=== PATIENT | male | born 1955 | race Caucasian/White ===

== ENCOUNTER 2021-08-27 22:57 | Inpatient (IN) | payer BC, SELFPAY ==
[2021-08-27] MEDS ORDERED: Acetaminophen 325 MG TAB PO PRN (23:20)
[2021-08-27] MEDS ORDERED: Ketorolac Tromethamine 30 MG/ML VIAL IVP SCH (23:45)
[2021-08-27] MEDS ORDERED: Vancomycin 1.5 GRAM/300 ML BAG 1.5 GM in Premix Bag 1 BAG IVPB SCH (23:59)
[2021-08-28] MEDS: Ondansetron PF 4 MG/2 ML Vial IVP PRN (00:35)
[2021-08-28 01:58] LABS: Troponin I 0.019 ng/mL (< 0.028)
[2021-08-28] MEDS: HYDROcodone/Acetaminophen 10/325 mg Tablet PO PRN ×3 (03:23→12:48)
[2021-08-28 05:15] LABS: #Lymphocytes 0.7 thou/uL (1.20-3.40); #Monocytes 0.2 thou/uL (0.11-0.59); #Neutrophils 6.3 thou/uL (1.40-6.50); %Basophils 0.3 % (0.0-1.0); %Eosinophils 0.2 % (0.0-10.0); %Lymphocytes 9.7 % (21.0-51.0); %Monocytes 2.3 % (0.0-10.0); %Neutrophils 87.6 % (42.0-75.0); Hemoglobin 14.1 g/dL (14.0-18.0); Mean Corpuscular HGB CONC 33.7 g/dL (32.0-36.0); Mean Corpuscular Hemoglobin 30.5 pg (27.0-31.0); Mean Corpuscular Volume 90.7 fL (78.0-98.0); Platelet Count 581 thou/uL (130-400); White Blood Cell (WBC) Count 7.2 thou/uL (4.8-10.8)
[2021-08-28 05:30] LABS: Anion Gap 13 mmol/L (10-20); BUN (Urea Nitrogen) 11 mg/dL (8.4-25.7); Calc. Creatinine Clearance 90 mL/min (70-130); Calcium 9.3 mg/dL (7.8-10.44); Carbon Dioxide 26 mmol/L (23-31); Chloride 99 mmol/L (98-107); Glucose 107 mg/dL (80-115); Potassium 4.3 mmol/L (3.5-5.1); Sodium 134 mmol/L (136-145)
[2021-08-28 05:35] LABS: Troponin I 0.028 ng/mL (< 0.028)
[2021-08-28] MEDS: Dexamethasone 4 mg/ml Vial SLOW IVP SCH ×3 (08:49→19:57)
[2021-08-28 09:29] LABS: Bacteria/HPF None Seen HPF (None Seen); Bilirubin Negative (Negative); Blood, Urine Negative (Negative); Clarity Clear (Clear); Glucose, Urine (Dipstick) Normal (Negative); Ketone, Urine 40 mg/dL (Negative); Leukocyte Negative Leu/uL (Negative); Nitrite Negative (Negative); Protein, Urine (Dipstick) 10 mg/dL (Neg-Trace); RBC/HPF 0-3 HPF (0-3); Specific Gravity, Urine 1.029 (1.002-1.036); Squamous Epithelial None Seen HPF (0-3); Urobilinogen Normal mg/dL (Less than 2); WBC/HPF 0-3 HPF (0-3)
[2021-08-28 09:31] LABS: Urine Culture Reflex No No
[2021-08-28] MEDS: Vancomycin 1 GM in Premix Bag 1 BAG IVPB SCH ×2 (11:42→23:21)
[2021-08-28] MEDS ORDERED: Magnevist 469MG/ML 20 ML VIAL ONE (12:29)
[2021-08-28] MEDS ORDERED: Ketorolac Tromethamine 30 MG/ML VIAL IVP SCH (15:45)
[2021-08-28] MEDS ORDERED: Morphine 4 MG/ML VIAL SLOW IVP SCH (15:45)
[2021-08-28] MEDS: Morphine 4 MG/ML VIAL SLOW IVP PRN ×2 (19:57→23:28)
[2021-08-28] MEDS: cloNIDine 0.1 MG TAB PO SCH (19:58)
[2021-08-28] MEDS: Ketorolac Tromethamine 30 MG/ML VIAL IVP SCH (23:21)
[2021-08-29] MEDS: Ketorolac Tromethamine 30 MG/ML VIAL IVP SCH ×3 (05:29→17:33)
[2021-08-29] MEDS: Morphine 4 MG/ML VIAL SLOW IVP PRN ×3 (05:30→20:57)
[2021-08-29 06:28] LABS: #Monocytes 0.9 thou/uL (0.11-0.59); #Neutrophils 12.8 thou/uL (1.40-6.50); %Basophils 0.1 % (0.0-1.0); %Eosinophils 0.1 % (0.0-10.0); %Lymphocytes 6.8 % (21.0-51.0); %Monocytes 5.8 % (0.0-10.0); %Neutrophils 87.2 % (42.0-75.0); Hemoglobin 14.7 g/dL (14.0-18.0); Mean Corpuscular HGB CONC 33.6 g/dL (32.0-36.0); Mean Corpuscular Hemoglobin 30.6 pg (27.0-31.0); Mean Corpuscular Volume 91.1 fL (78.0-98.0); Platelet Count 640 thou/uL (130-400); RBC Distribution Width 12.2 % (11.5-14.5); Red Blood Cell (RBC) Count 4.79 mill/uL (4.70-6.10); White Blood Cell (WBC) Count 14.7 thou/uL (4.8-10.8)
[2021-08-29 06:49] LABS: Anion Gap 13 mmol/L (10-20); BUN (Urea Nitrogen) 20 mg/dL (8.4-25.7); Calc. Creatinine Clearance 88 mL/min (70-130); Carbon Dioxide 29 mmol/L (23-31); Chloride 96 mmol/L (98-107); Glucose 123 mg/dL (80-115); Potassium 4.7 mmol/L (3.5-5.1); Sodium 133 mmol/L (136-145)
[2021-08-29] MEDS: Amlodipine 10 MG TAB PO SCH (09:24)
[2021-08-29] MEDS: Lisinopril 20 MG TAB PO SCH (09:25)
[2021-08-29] MEDS: Dexamethasone 4 mg/ml Vial SLOW IVP SCH ×3 (09:26→21:03)
[2021-08-29 11:26] LABS: Vancomycin, Trough 9.8 ug/mL
[2021-08-29] MEDS: Vancomycin 1 GM in Premix Bag 1 BAG IVPB SCH (12:05)
[2021-08-29] MEDS: Ondansetron PF 4 MG/2 ML Vial IVP PRN (12:05)
[2021-08-29] MEDS: Vancomycin HCl 1.25 GM in Sodium Chloride 0.9% 250 ML 250 ML IVPB SCH (12:20)
[2021-08-29] MEDS ORDERED: Lidocaine 1% w/Epinephrine 1:100K 20 ML VIAL ONE (14:48)
[2021-08-29] MEDS ORDERED: Lidocaine 1% w/Epinephrine 1:100K 20 ML VIAL FS SCH (15:00)
[2021-08-29] MEDS ORDERED: Morphine 4 MG/ML VIAL SLOW IVP SCH (15:15)
[2021-08-29] MEDS: cloNIDine 0.1 MG TAB PO SCH (21:11)
[2021-08-30] MEDS: Vancomycin HCl 1.25 GM in Sodium Chloride 0.9% 250 ML 250 ML IVPB SCH ×2 (00:58→11:56)
[2021-08-30] MEDS: Ketorolac Tromethamine 30 MG/ML VIAL IVP SCH ×4 (01:00→17:33)
[2021-08-30] MEDS: Morphine 4 MG/ML VIAL SLOW IVP PRN ×6 (01:04→21:04)
[2021-08-30 05:56] LABS: Anion Gap 9 mmol/L (10-20); BUN (Urea Nitrogen) 20 mg/dL (8.4-25.7); Calc. Creatinine Clearance 93 mL/min (70-130); Calcium 9.4 mg/dL (7.8-10.44); Carbon Dioxide 31 mmol/L (23-31); Chloride 98 mmol/L (98-107); Glucose 141 mg/dL (80-115); Potassium 3.9 mmol/L (3.5-5.1); Sodium 134 mmol/L (136-145)
[2021-08-30 06:25] LABS: Band 2 % (5-11); Hemoglobin 13.4 g/dL (14.0-18.0); Lymphocytes 5 % (21-51); MDiff Complete? YES; Mean Corpuscular HGB CONC 33.4 g/dL (32.0-36.0); Mean Corpuscular Hemoglobin 30.1 pg (27.0-31.0); Mean Corpuscular Volume 90.3 fL (78.0-98.0); Mean Platelet Volume 7.1 fL (7.4-10.4); Monocytes 4 % (0-10); Neutrophil 89 % (42-75); Platelet Count 582 thou/uL (130-400); RBC Distribution Width 12.2 % (11.5-14.5); Red Blood Cell (RBC) Count 4.46 mill/uL (4.70-6.10); White Blood Cell (WBC) Count 15.9 thou/uL (4.8-10.8)
[2021-08-30] MEDS: Lisinopril 20 MG TAB PO SCH (08:50)
[2021-08-30] MEDS: Dexamethasone 4 mg/ml Vial SLOW IVP SCH ×3 (08:51→21:04)
[2021-08-30] MEDS: Amlodipine 10 MG TAB PO SCH (08:51)
[2021-08-30] MEDS ORDERED: Morphine 4 MG/ML VIAL SLOW IVP SCH (15:15)
[2021-08-30] MEDS: Ondansetron PF 4 MG/2 ML Vial IVP PRN (17:34)
[2021-08-30] MEDS: cloNIDine 0.1 MG TAB PO SCH (21:04)
[2021-08-31 00:29] LABS: Vancomycin, Trough 11.5 ug/mL
[2021-08-31] MEDS: Ketorolac Tromethamine 30 MG/ML VIAL IVP SCH ×4 (01:00→19:09)
[2021-08-31] MEDS: Vancomycin HCl 1.25 GM in Sodium Chloride 0.9% 250 ML 250 ML IVPB SCH (01:00)
[2021-08-31] MEDS: Morphine 4 MG/ML VIAL SLOW IVP PRN ×5 (01:05→20:52)
[2021-08-31] MEDS: Amlodipine 10 MG TAB PO SCH (08:52)
[2021-08-31] MEDS: Lisinopril 20 MG TAB PO SCH (08:52)
[2021-08-31] MEDS: Vancomycin 1 GM in Premix Bag 1 BAG IVPB SCH ×2 (08:53→19:08)
[2021-08-31] MEDS: Ondansetron PF 4 MG/2 ML Vial IVP PRN (08:53)
[2021-08-31] MEDS: Dexamethasone 4 mg/ml Vial SLOW IVP SCH ×3 (08:53→20:52)
[2021-08-31] MEDS ORDERED: FLU VACC QS2021-22(6MOS UP)/PF 60 MCG/0.5 ML SYRINGE IM ONE (09:00)
[2021-08-31] MEDS: cloNIDine 0.1 MG TAB PO SCH (20:49)
[2021-09-01 00:43] LABS: Vancomycin, Trough 18.3 ug/mL
[2021-09-01] MEDS: Ketorolac Tromethamine 30 MG/ML VIAL IVP SCH ×5 (01:15→22:09)
[2021-09-01] MEDS: Morphine 4 MG/ML VIAL SLOW IVP PRN ×5 (03:47→22:08)
[2021-09-01] MEDS: Amlodipine 10 MG TAB PO SCH (08:56)
[2021-09-01] MEDS: Lisinopril 20 MG TAB PO SCH (08:57)
[2021-09-01] MEDS: Dexamethasone 4 mg/ml Vial SLOW IVP SCH ×3 (08:57→20:00)
[2021-09-01 10:13] LABS: Hemoglobin 15.2 g/dL (14.0-18.0); Mean Corpuscular HGB CONC 33.8 g/dL (32.0-36.0); Mean Corpuscular Hemoglobin 31.1 pg (27.0-31.0); Mean Corpuscular Volume 92.2 fL (78.0-98.0); Mean Platelet Volume 7.2 fL (7.4-10.4); Platelet Count 585 thou/uL (130-400); RBC Distribution Width 12.3 % (11.5-14.5); Red Blood Cell (RBC) Count 4.89 mill/uL (4.70-6.10); White Blood Cell (WBC) Count 20.6 thou/uL (4.8-10.8)
[2021-09-01 10:31] LABS: Lymphocytes 7 % (21-51); MDiff Complete? YES; Monocytes 5 % (0-10); Neutrophil 88 % (42-75); Platelet Morphology Comment Appears Increased; RBC Morphology Normal
[2021-09-01] MEDS ORDERED: PROPOFOL 200 MG/20 ML VIAL ONE (12:59)
[2021-09-01] MEDS: cloNIDine 0.1 MG TAB PO SCH (19:59)
[2021-09-02] MEDS: Morphine 4 MG/ML VIAL SLOW IVP PRN ×2 (02:03→05:19)
[2021-09-02] MEDS: Ketorolac Tromethamine 30 MG/ML VIAL IVP SCH ×4 (05:19→23:39)
[2021-09-02 07:26] LABS: Hemoglobin 14.5 g/dL (14.0-18.0); Mean Corpuscular HGB CONC 32.6 g/dL (32.0-36.0); Mean Corpuscular Hemoglobin 29.9 pg (27.0-31.0); Mean Corpuscular Volume 91.8 fL (78.0-98.0); Mean Platelet Volume 7.4 fL (7.4-10.4); Platelet Count 556 thou/uL (130-400); RBC Distribution Width 12.4 % (11.5-14.5); Red Blood Cell (RBC) Count 4.84 mill/uL (4.70-6.10); White Blood Cell (WBC) Count 30.1 thou/uL (4.8-10.8)
[2021-09-02 08:20] LABS: Band 3 % (5-11); Lymphocytes 2 % (21-51); MDiff Complete? YES; Monocytes 1 % (0-10); Neutrophil 93 % (42-75); Platelet Morphology Comment Appears Increased; Polychromasia SLIGHT = 2-3 cells (100X) (0-2/hpf); Reactive Lymphocytes 1 % (0-10); Vacuoles SLIGHT
[2021-09-02] MEDS: Dexamethasone 4 mg/ml Vial SLOW IVP SCH ×3 (08:38→20:02)
[2021-09-02] MEDS: Lisinopril 20 MG TAB PO SCH (08:39)
[2021-09-02] MEDS: Amlodipine 10 MG TAB PO SCH (08:39)
[2021-09-02] MEDS ORDERED: Morphine 10 MG/ML VIAL SLOW IVP PRN (10:30)
[2021-09-02] MEDS: Ondansetron PF 4 MG/2 ML Vial IVP PRN ×2 (10:34→16:33)
[2021-09-02] MEDS: HYDROcodone/Acetaminophen 10/325 mg Tablet PO PRN (12:29)
[2021-09-02] MEDS ORDERED: oxyCODONE/Acetaminophen 5 mg/325 mg Tablet PO PRN (14:57)
[2021-09-02] MEDS: Fentanyl 100 MCG/2 ML VIAL SLOW IVP PRN ×2 (17:50→23:39)
[2021-09-02] MEDS: Amino Acids 4.25 %/Dextrose 5% 1,000 ML IV SCH (17:51)
[2021-09-02] MEDS: cloNIDine 0.1 MG TAB PO SCH (20:02)
[2021-09-03] MEDS: Promethazine HCl 25 MG in Sodium Chloride 0.9% 50 ML IVPB PRN ×2 (00:19→15:17)
[2021-09-03] MEDS: Amino Acids 4.25 %/Dextrose 5% 1,000 ML IV SCH (06:31)
[2021-09-03 07:16] LABS: #Lymphocytes 0.8 thou/uL (1.20-3.40); #Monocytes 1.5 thou/uL (0.11-0.59); #Neutrophils 16.2 thou/uL (1.40-6.50); %Eosinophils 0.1 % (0.0-10.0); %Lymphocytes 4.6 % (21.0-51.0); %Monocytes 7.9 % (0.0-10.0); %Neutrophils 87.4 % (42.0-75.0); Hemoglobin 13.6 g/dL (14.0-18.0); Mean Corpuscular HGB CONC 31.8 g/dL (32.0-36.0); Mean Corpuscular Hemoglobin 29.2 pg (27.0-31.0); Mean Corpuscular Volume 91.7 fL (78.0-98.0); Platelet Count 515 thou/uL (130-400); RBC Distribution Width 12.3 % (11.5-14.5); Red Blood Cell (RBC) Count 4.65 mill/uL (4.70-6.10); White Blood Cell (WBC) Count 18.5 thou/uL (4.8-10.8)
[2021-09-03 07:34] LABS: ALT (SGPT) 16 U/L (8-55); AST (SGOT) 13 U/L (5-34); Albumin 3.2 g/dL (3.4-4.8); Alkaline Phosphatase 78 U/L (40-110); Anion Gap 12 mmol/L (10-20); BUN (Urea Nitrogen) 32 mg/dL (8.4-25.7); Bilirubin, Total 0.3 mg/dL (0.2-1.2); Calc. Creatinine Clearance 98 mL/min (70-130); Carbon Dioxide 28 mmol/L (23-31); Chloride 95 mmol/L (98-107); Globulin 2.5 g/dL (2.4-3.5); Glucose 114 mg/dL (80-115); Potassium 4.2 mmol/L (3.5-5.1); Protein, Total 5.7 g/dL (5.8-8.1); Sodium 131 mmol/L (136-145)
[2021-09-03] MEDS: Amlodipine 10 MG TAB PO SCH (08:34)
[2021-09-03] MEDS: Fentanyl 100 MCG/2 ML VIAL SLOW IVP PRN ×3 (08:35→15:05)
[2021-09-03] MEDS: Dexamethasone 4 mg/ml Vial SLOW IVP SCH ×3 (08:35→20:02)
[2021-09-03] MEDS ORDERED: Amino Acids 4.25 %/Dextrose 5% 2,000 ML BAG IV SCH (09:00)
[2021-09-03] MEDS: Lorazepam 0.5 MG TAB PO SCH (11:57)
[2021-09-03] MEDS: Scopolamine 1.5 mg/72 hour Patch TD SCH (14:07)
[2021-09-03] MEDS: Ondansetron PF 4 MG/2 ML Vial IVP SCH ×2 (14:07→20:02)
[2021-09-03 16:47] LABS: Band 4 % (5-11); Hemoglobin 15.6 g/dL (14.0-18.0); Lymphocytes 3 % (21-51); MDiff Complete? YES; Mean Corpuscular HGB CONC 32.7 g/dL (32.0-36.0); Mean Corpuscular Hemoglobin 29.7 pg (27.0-31.0); Mean Corpuscular Volume 90.9 fL (78.0-98.0); Mean Platelet Volume 7.1 fL (7.4-10.4); Monocytes 9 % (0-10); Neutrophil 80 % (42-75); Platelet Count 549 thou/uL (130-400); Platelet Morphology Comment Appears Increased; RBC Distribution Width 12.4 % (11.5-14.5); RBC Morphology Normal; Reactive Lymphocytes 4 % (0-10); Red Blood Cell (RBC) Count 5.24 mill/uL (4.70-6.10); White Blood Cell (WBC) Count 22.4 thou/uL (4.8-10.8)
[2021-09-03 17:33] LABS: Albumin 3.6 g/dL (3.4-4.8)
[2021-09-03 17:34] LABS: Calcium 9.7 mg/dL (7.8-10.44); Chloride 95 mmol/L (98-107); Potassium 4.8 mmol/L (3.5-5.1); Sodium 129 mmol/L (136-145)
[2021-09-03 17:35] LABS: Glucose 120 mg/dL (80-115)
[2021-09-03 17:36] LABS: Anion Gap 19 mmol/L (10-20); Carbon Dioxide 20 mmol/L (23-31); Globulin 3.5 g/dL (2.4-3.5); Protein, Total 7.1 g/dL (5.8-8.1)
[2021-09-03 17:37] LABS: Bilirubin, Total 0.5 mg/dL (0.2-1.2)
[2021-09-03 17:38] LABS: Alkaline Phosphatase 96 U/L (40-110)
[2021-09-03 17:39] LABS: BUN (Urea Nitrogen) 24 mg/dL (8.4-25.7); Calc. Creatinine Clearance 88 mL/min (70-130)
[2021-09-03 17:40] LABS: AST (SGOT) 22 U/L (5-34)
[2021-09-03 17:41] LABS: ALT (SGPT) 20 U/L (8-55)
[2021-09-03] MEDS: oxyCODONE ER 10 MG TAB PO SCH (20:01)
[2021-09-03] MEDS: cloNIDine 0.1 MG TAB PO SCH (20:02)
[2021-09-04] MEDS: Amino Acids 4.25 %/Dextrose 5% 1,000 ML IV SCH ×4 (02:07→23:55)
[2021-09-04] MEDS: Fentanyl 100 MCG/2 ML VIAL SLOW IVP PRN ×2 (03:25→23:56)
[2021-09-04] MEDS: Ondansetron PF 4 MG/2 ML Vial IVP SCH ×3 (04:20→20:33)
[2021-09-04 06:29] LABS: #Lymphocytes 0.5 thou/uL (1.20-3.40); #Monocytes 1.4 thou/uL (0.11-0.59); #Neutrophils 14.8 thou/uL (1.40-6.50); %Eosinophils 0.1 % (0.0-10.0); %Lymphocytes 3.1 % (21.0-51.0); %Monocytes 8.5 % (0.0-10.0); %Neutrophils 88.3 % (42.0-75.0); Hemoglobin 13.9 g/dL (14.0-18.0); Mean Corpuscular HGB CONC 33.5 g/dL (32.0-36.0); Mean Corpuscular Hemoglobin 30.4 pg (27.0-31.0); Mean Corpuscular Volume 90.8 fL (78.0-98.0); Mean Platelet Volume 7.2 fL (7.4-10.4); Platelet Count 504 thou/uL (130-400); RBC Distribution Width 12.4 % (11.5-14.5); Red Blood Cell (RBC) Count 4.59 mill/uL (4.70-6.10); White Blood Cell (WBC) Count 16.8 thou/uL (4.8-10.8)
[2021-09-04 06:47] LABS: ALT (SGPT) 16 U/L (8-55); AST (SGOT) 15 U/L (5-34); Albumin 3.3 g/dL (3.4-4.8); Alkaline Phosphatase 74 U/L (40-110); Anion Gap 12 mmol/L (10-20); BUN (Urea Nitrogen) 24 mg/dL (8.4-25.7); Bilirubin, Total 0.4 mg/dL (0.2-1.2); Calc. Creatinine Clearance 94 mL/min (70-130); Calcium 9.1 mg/dL (7.8-10.44); Carbon Dioxide 26 mmol/L (23-31); Chloride 96 mmol/L (98-107); Globulin 2.7 g/dL (2.4-3.5); Glucose 108 mg/dL (80-115); Potassium 4.1 mmol/L (3.5-5.1); Sodium 130 mmol/L (136-145)
[2021-09-04] MEDS: Amlodipine 10 MG TAB PO SCH (08:22)
[2021-09-04] MEDS: Dexamethasone 4 mg/ml Vial SLOW IVP SCH ×3 (08:23→20:28)
[2021-09-04] MEDS: oxyCODONE ER 10 MG TAB PO SCH ×2 (08:23→20:27)
[2021-09-04 11:24] VITALS: BMI 18.9
[2021-09-04] MEDS: oxyCODONE 5 MG TAB PO PRN ×2 (12:09→16:54)
[2021-09-04] MEDS: Lorazepam 0.5 MG TAB PO SCH (12:09)
[2021-09-04] MEDS: cloNIDine 0.1 MG TAB PO SCH (20:28)
[2021-09-05] MEDS: Ondansetron PF 4 MG/2 ML Vial IVP SCH ×3 (04:52→20:36)
[2021-09-05] MEDS: oxyCODONE 5 MG TAB PO PRN ×2 (04:57→13:17)
[2021-09-05] MEDS: oxyCODONE ER 10 MG TAB PO SCH ×2 (08:56→20:36)
[2021-09-05] MEDS: Lorazepam 0.5 MG TAB PO SCH (08:56)
[2021-09-05] MEDS: Dexamethasone 4 mg/ml Vial SLOW IVP SCH ×3 (08:57→20:35)
[2021-09-05] MEDS: Amlodipine 10 MG TAB PO SCH (08:58)
[2021-09-05 10:12] LABS: Hemoglobin 14.5 g/dL (14.0-18.0); Mean Corpuscular HGB CONC 32.9 g/dL (32.0-36.0); Mean Corpuscular Hemoglobin 29.9 pg (27.0-31.0); Mean Corpuscular Volume 90.8 fL (78.0-98.0); Mean Platelet Volume 7.2 fL (7.4-10.4); Platelet Count 463 thou/uL (130-400); RBC Distribution Width 12.3 % (11.5-14.5); Red Blood Cell (RBC) Count 4.86 mill/uL (4.70-6.10); White Blood Cell (WBC) Count 19.3 thou/uL (4.8-10.8)
[2021-09-05 10:33] LABS: ALT (SGPT) 18 U/L (8-55); AST (SGOT) 15 U/L (5-34); Albumin 3.1 g/dL (3.4-4.8); Alkaline Phosphatase 69 U/L (40-110); Anion Gap 13 mmol/L (10-20); BUN (Urea Nitrogen) 27 mg/dL (8.4-25.7); Bilirubin, Total 0.5 mg/dL (0.2-1.2); Calc. Creatinine Clearance 90 mL/min (70-130); Carbon Dioxide 23 mmol/L (23-31); Chloride 95 mmol/L (98-107); Globulin 2.8 g/dL (2.4-3.5); Glucose 93 mg/dL (80-115); Potassium 4.1 mmol/L (3.5-5.1); Protein, Total 5.9 g/dL (5.8-8.1); Sodium 127 mmol/L (136-145)
[2021-09-05] MEDS: cloNIDine 0.1 MG TAB PO SCH (20:36)
[2021-09-05] MEDS: Amino Acids 4.25 %/Dextrose 5% 1,000 ML IV SCH (23:34)
[2021-09-06] MEDS: oxyCODONE 5 MG TAB PO PRN (01:46)
[2021-09-06] MEDS: Fentanyl 100 MCG/2 ML VIAL SLOW IVP PRN ×2 (03:04→18:58)
[2021-09-06] MEDS: Ondansetron PF 4 MG/2 ML Vial IVP SCH ×3 (04:58→21:13)
[2021-09-06] MEDS: Sodium Chloride 0.9% 1,000 ML IV SCH ×2 (09:01→23:53)
[2021-09-06] MEDS: Lorazepam 0.5 MG TAB PO SCH (09:02)
[2021-09-06] MEDS: oxyCODONE ER 10 MG TAB PO SCH ×2 (09:02→21:14)
[2021-09-06] MEDS: Amlodipine 10 MG TAB PO SCH (09:02)
[2021-09-06] MEDS: Dexamethasone 4 mg/ml Vial SLOW IVP SCH ×3 (09:02→21:13)
[2021-09-06] MEDS ORDERED: Clarithromycin 500 MG TAB PO SCH (11:30)
[2021-09-06] MEDS: Scopolamine 1.5 mg/72 hour Patch TD SCH (12:35)
[2021-09-06] MEDS: Amino Acids 4.25 %/Dextrose 5% 1,000 ML IV SCH (12:35)
[2021-09-06] MEDS: metroNIDAZOLE 500 MG in Premix Bag 1 BAG IVPB SCH ×2 (12:48→21:22)
[2021-09-06] MEDS ORDERED: Albuterol Sulfate 2.5 mg/3 ml Neb EZPAP PRN (14:10)
[2021-09-06] MEDS: Clarithromycin 500 MG TAB PO SCH (21:13)
[2021-09-06] MEDS: cloNIDine 0.1 MG TAB PO SCH (21:13)
[2021-09-07] MEDS: Amino Acids 4.25 %/Dextrose 5% 1,000 ML IV SCH ×2 (02:08→14:31)
[2021-09-07] MEDS: Sodium Chloride 0.9% 1,000 ML IV SCH ×2 (02:15→14:32)
[2021-09-07] MEDS: metroNIDAZOLE 500 MG in Premix Bag 1 BAG IVPB SCH ×3 (05:11→20:56)
[2021-09-07] MEDS: Ondansetron PF 4 MG/2 ML Vial IVP SCH ×3 (05:12→20:51)
[2021-09-07] MEDS: Fentanyl 100 MCG/2 ML VIAL SLOW IVP PRN ×2 (05:50→16:19)
[2021-09-07 07:12] LABS: #Lymphocytes 0.4 thou/uL (1.20-3.40); #Monocytes 1.4 thou/uL (0.11-0.59); #Neutrophils 12.5 thou/uL (1.40-6.50); %Eosinophils 0.1 % (0.0-10.0); %Lymphocytes 2.7 % (21.0-51.0); %Monocytes 9.7 % (0.0-10.0); %Neutrophils 87.4 % (42.0-75.0); Hemoglobin 13.2 g/dL (14.0-18.0); Mean Corpuscular HGB CONC 33.7 g/dL (32.0-36.0); Mean Corpuscular Hemoglobin 30.4 pg (27.0-31.0); Mean Corpuscular Volume 90.2 fL (78.0-98.0); Mean Platelet Volume 7.4 fL (7.4-10.4); Platelet Count 417 thou/uL (130-400); RBC Distribution Width 12.3 % (11.5-14.5); Red Blood Cell (RBC) Count 4.35 mill/uL (4.70-6.10); White Blood Cell (WBC) Count 14.2 thou/uL (4.8-10.8)
[2021-09-07 07:30] LABS: ALT (SGPT) 16 U/L (8-55); AST (SGOT) 11 U/L (5-34); Albumin 2.9 g/dL (3.4-4.8); Alkaline Phosphatase 71 U/L (40-110); Anion Gap 9 mmol/L (10-20); BUN (Urea Nitrogen) 26 mg/dL (8.4-25.7); Bilirubin, Total 0.3 mg/dL (0.2-1.2); Calc. Creatinine Clearance 99 mL/min (70-130); Calcium 8.3 mg/dL (7.8-10.44); Carbon Dioxide 24 mmol/L (23-31); Chloride 102 mmol/L (98-107); Globulin 2.3 g/dL (2.4-3.5); Glucose 105 mg/dL (80-115); Potassium 3.8 mmol/L (3.5-5.1); Protein, Total 5.2 g/dL (5.8-8.1); Sodium 131 mmol/L (136-145)
[2021-09-07] MEDS: oxyCODONE ER 10 MG TAB PO SCH ×2 (09:15→20:50)
[2021-09-07] MEDS: Clarithromycin 500 MG TAB PO SCH ×2 (09:16→20:49)
[2021-09-07] MEDS: Dexamethasone 4 mg/ml Vial SLOW IVP SCH ×3 (09:16→20:49)
[2021-09-07] MEDS: Amlodipine 10 MG TAB PO SCH (09:17)
[2021-09-07] MEDS: Lorazepam 0.5 MG TAB PO SCH (10:39)
[2021-09-07 20:49] VITALS: TEMP 97.5
[2021-09-07] MEDS: cloNIDine 0.1 MG TAB PO SCH (20:49)
[2021-09-08] MEDS: Sodium Chloride 0.9% 1,000 ML IV SCH (00:32)
[2021-09-08] MEDS: Fentanyl 100 MCG/2 ML VIAL SLOW IVP PRN (01:19)
[2021-09-08] MEDS: metroNIDAZOLE 500 MG in Premix Bag 1 BAG IVPB SCH (04:50)
[2021-09-08] MEDS: Ondansetron PF 4 MG/2 ML Vial IVP SCH (06:00)
[2021-09-08] MEDS: Amlodipine 10 MG TAB PO SCH (09:14)
[2021-09-08] MEDS: Lorazepam 0.5 MG TAB PO SCH (09:15)
[2021-09-08] MEDS: oxyCODONE ER 10 MG TAB PO SCH (09:15)
[2021-09-08] MEDS: Dexamethasone 4 mg/ml Vial SLOW IVP SCH (09:16)
[2021-09-08] MEDS: Clarithromycin 500 MG TAB PO SCH (09:17)
[2021-09-08 09:22] VITALS: BP 151/92
== END 2021-09-08 10:38 | disposition home or self-care (01) | DRG 25 ==
LOC: T4-B 22:57
PROVIDERS: ADMIT Internal Medicine; ATTEND Internal Medicine
PROC: 0N9 Head and Facial Bones, Drainage (ICD-10-PCS; 2021-08-29)
PROC: 0DB78ZX Excision of Stomach, Pylorus, Via Natural or Artificial Opening Endoscopic, Diagnostic (ICD-10-PCS; principal; 2021-09-01)
PROC: 0D758ZZ Dilation of Esophagus, Via Natural or Artificial Opening Endoscopic (ICD-10-PCS; 2021-09-01)
DX: C79.31 Secondary malignant neoplasm of brain (principal); G93.6 Cerebral edema; I63.89 Other cerebral infarction; C79.51 Secondary malignant neoplasm of bone; Z68.1 Body mass index [BMI] 19.9 or less, adult; E87.1 Hypo-osmolality and hyponatremia; C78.1 Secondary malignant neoplasm of mediastinum; C78.00 Secondary malignant neoplasm of unspecified lung; C78.89 Secondary malignant neoplasm of other digestive organs; C80.1 Malignant (primary) neoplasm, unspecified; Z51.5 Encounter for palliative care; Z20.822 Contact with and (suspected) exposure to COVID-19; I25.10 Atherosclerotic heart disease of native coronary artery without angina pectoris; I10 Essential (primary) hypertension; E78.5 Hyperlipidemia, unspecified; F17.210 Nicotine dependence, cigarettes, uncomplicated; D72.829 Elevated white blood cell count, unspecified; R63.6 Underweight; E27.9 Disorder of adrenal gland, unspecified; R59.0 Localized enlarged lymph nodes; Z85.46 Personal history of malignant neoplasm of prostate; Z95.5 Presence of coronary angioplasty implant and graft; R13.12 Dysphagia, oropharyngeal phase; K29.00 Acute gastritis without bleeding; B96.81 Helicobacter pylori [H. pylori] as the cause of diseases classified elsewhere; T38.0X5A Adverse effect of glucocorticoids and synthetic analogues, initial encounter
CPT/HCPCS: 36415; 36416; 70553; 77014; 77280; 77290; 77334; 77412; 80048; 80053; 80202; 81001; 82378; 84153; 84484; 85025; 85027; 87040; 88173; 88305; 88312; 88341; 88342; 93005; 93010; A9579; J1100; J1885; J2270; J2405; J2550; J2704; J3010; J3370; J7050

== ENCOUNTER 2021-09-10 10:02 | Outpatient (CLI) | payer BC | END 2021-09-10 10:03 | disposition home or self-care (01) | LOC: BICRAD 10:02 | PROVIDERS: ATTEND Radiology Radiation Oncology | DX: C79.51 Secondary malignant neoplasm of bone (principal); M25.551 Pain in right hip; M89.9 Disorder of bone, unspecified; R93.7 Abnormal findings on diagnostic imaging of other parts of musculoskeletal system | CPT/HCPCS: 72170 ==

== ENCOUNTER 2021-09-17 11:40 | Outpatient (CLI) | payer SELFPAY, BC ==
[2021-09-18 06:55] LABS: SARS-CoV-2 NAA Rapid Test Not Detected (NotDetected)
== END 2021-09-17 11:41 | disposition home or self-care (01) ==
LOC: LABBT 11:40
PROVIDERS: ATTEND Internal Medicine Gastroenterology
DX: Z01.812 Encounter for preprocedural laboratory examination (principal); Z20.822 Contact with and (suspected) exposure to COVID-19
CPT/HCPCS: U0002; U0003; U0005

== ENCOUNTER 2021-09-18 05:48 | Day surgery (SDC) | payer BC ==
[2021-09-17 12:21] VITALS: BMI 17.5
[2021-09-18] MEDS ORDERED: Midazolam HCl 2 mg/2 ml Vial ONE (07:03)
[2021-09-18] MEDS ORDERED: Ketamine 50 MG/ML (10ML VIAL) ONE (07:03)
[2021-09-18] MEDS ORDERED: ceFAZolin 2 GM/DEX 5% 100 ML BAG ONE (07:07)
[2021-09-18] MEDS ORDERED: PROPOFOL 200 MG/20 ML VIAL ONE (07:15)
[2021-09-18] MEDS ORDERED: Lidocaine 1% PF 5 ML VIAL ONE (07:15)
[2021-09-18] MEDS ORDERED: Fluconazole In NaCl,Iso-Osm 400 MG in Premix Bag 1 BAG IVPB SCH (07:45)
[2021-09-18] MEDS ORDERED: HYDROcodone/Acetaminophen 5/325 mg Tablet ONE (09:19)
== END 2021-09-18 09:42 | disposition home or self-care (01) ==
LOC: SDC 05:48
PROVIDERS: ATTEND Internal Medicine Gastroenterology
PROC: 0DH63UZ Insertion of Feeding Device into Stomach, Percutaneous Approach (ICD-10-PCS; principal; 2021-09-18)
PROC: 3E0G8GC Introduction of Other Therapeutic Substance into Upper GI, Via Natural or Artificial Opening Endoscopic (ICD-10-PCS; principal; 2021-09-18)
DX: B37.81 Candidal esophagitis (principal); B37.0 Candidal stomatitis; K21.00 Gastro-esophageal reflux disease with esophagitis, without bleeding; K22.89 Other specified disease of esophagus; K29.70 Gastritis, unspecified, without bleeding; E78.00 Pure hypercholesterolemia, unspecified; I10 Essential (primary) hypertension; F17.200 Nicotine dependence, unspecified, uncomplicated; R63.4 Abnormal weight loss; Z68.1 Body mass index [BMI] 19.9 or less, adult; Z79.899 Other long term (current) drug therapy; Z95.5 Presence of coronary angioplasty implant and graft; Z90.79 Acquired absence of other genital organ(s)
CPT/HCPCS: J0585; J1450; J2250